=== PATIENT | male | born 1975 | race Caucasian/White ===

== ENCOUNTER → 2016-10-04 | Outpatient (CLI) | payer OTHER | LOC: CIMAGING 14:05 | PROVIDERS: ATTEND Physical Medicine & Rehabilitation | DX: M25.562 Pain in left knee (principal) | CPT/HCPCS: 73564-PO ==

== ENCOUNTER 2019-01-24 08:21 | Outpatient (CLI) | payer OTHER | END 2019-01-24 14:35 | disposition home or self-care (01) | LOC: FIMAGING 08:21 ==

== ENCOUNTER → 2019-01-24 | Outpatient (CLI) | payer OTHER | LOC: FIMAGING 08:26 ==